=== PATIENT | male | born 1960 | race Two or more races ===

== ENCOUNTER 2023-11-21 20:47 | Inpatient (IN) | payer MEDICARE, OTHER ==
[~2023-11-21] VITALS: Ht 165.1 cm; Wt 82.5 kg
[2023-11-21 21:05] VITALS: PULSE 74; RESP 14; O2SAT 98
[2023-11-21] MEDS: IOHEXOL 350 MG/ML 100ML IJ ONE (21:24)
[2023-11-21] MEDS: ASPirin 81 mg TAB PO ONE (21:37)
[2023-11-21] MEDS: NITROGLYCERIN 0.4MG/HR TOPICAL PATCH TD ONE (21:37)
[2023-11-21] MEDS: hydrALAZINE HCL 20 MG/ML VL IV ONE (21:38)
[2023-11-21] MEDS: MORPHINE SULFATE 4 MG/ML SYR/VIAL IV ONE ×2 (21:49→23:10)
[2023-11-21 22:14] LABS: Basophils # (auto) 0.1 10 ^3/uL (0-0.2); Basophils % (auto) 0.7 % (0.0-2.0); Eosinophils # (auto) 0.2 10 ^3/uL (0-0.8); Eosinophils % (auto) 2.1 % (0.0-7.0); Hematocrit 47.8 % (41.0-53.0); Hemoglobin 16.9 g/dL (13.5-17.5); Lymphocytes # (auto) 1.1 10 ^3/uL (0.4-5.4); Mean Corpuscular Hemoglobin 32.5 pg (28.0-32.0); Mean Corpuscular Hgb Conc. 35.4 g/dL (32.0-36.0); Mean Corpuscular Volume 91.9 fL (80.0-100.0); Monocytes # (auto) 0.7 10 ^3/uL (0-1.3); Monocytes % (auto) 8.6 % (0.0-12.0); Neutrophils # (auto) 5.7 10 ^3/uL (1.6-8.6); Neutrophils % (auto) 74.6 % (37.0-80.0); Nucleated Red Blood Cells % 0.1 %; Platelet Count (auto) 153 10^3/uL (140-450); Red Cell Distribution Width 13.4 % (11.8-14.3); White Blood Cell 7.6 10^3/uL (4.4-10.8)
[2023-11-21 22:15] LABS: Urine Bacteria None Seen /hpf (None Seen); Urine WBC None Seen /hpf (0 - 3)
[2023-11-21 22:31] LABS: INR 0.96 (0.9-1.15); Partial Thromboplastin Time 25.6 SEC (24.5-34.5); Prothrombin Time 10.2 sec (9.3-11.8)
[2023-11-21 22:32] LABS: Urine Blood Negative /uL (Negative); Urine Clarity Clear (Clear); Urine Color Colorless (Yellow); Urine Protein, UAD Negative (Negative); Urine Specific Gravity 1.016 (1.001-1.035); Urine Urobilinogen Normal (Negative)
[2023-11-21 22:35] LABS: Alanine Aminotransferase 54 U/L (7-40); Albumin 4.7 g/dL (3.2-4.8); Alkaline Phosphatase 89 U/L (46-116); Anion Gap 6 (5-15); Aspartate Aminotransferase 28 U/L (13-40); BUN/Creatinine Ratio 10.6 (10.0-20.0); Blood Urea Nitrogen 12 mg/dL (9-23); Calcium 9.5 mg/dL (8.7-10.4); Carbon Dioxide 23 mmol/L (20-31); Chloride 105 mmol/L (98-107); Glucose 123 mg/dL (74-106); Potassium 3.5 mmol/L (3.5-5.1); Sodium 134 mmol/L (136-145)
[2023-11-21 22:36] LABS: Bilirubin, Total 0.6 mg/dL (0.2-1.0); Total Protein 7.3 g/dL (5.7-8.2)
[2023-11-21] MEDS: HEPARIN SODIUM (PORCINE) 5000 UNITS/ML 1ML VIAL IV ONE ×2 (23:27)
[2023-11-22] VITALS (14 sets, daily range): BP systolic 116–161; BP diastolic 57–85; PULSE 55–72; RESP 15–22; TEMP 98.1–98.7; O2SAT 94–98
[2023-11-22] MEDS ORDERED: NITROGLYCERIN 0.4 MG SL TAB SL PRN
[2023-11-22] MEDS: hydrALAZINE HCL 20 MG/ML VL IV SCH
[2023-11-22] MEDS ORDERED: ONDANSETRON HCL 4 MG/2 ML VIAL IV PRN
[2023-11-22] MEDS ORDERED: MORPHINE SULFATE INJ 2 MG/ml SYRG IV PRN
[2023-11-22 00:20] LABS: Triglycerides 553 mg/dL (< 150)
[2023-11-22 00:22] LABS: Cholesterol 245 mg/dL (< 200); HDL Cholesterol 40 mg/dL (40-59)
[2023-11-22] MEDS: HEPARIN DRIP/D5W 100UNITS/ML 250 ML IV SCH ×2 (00:24→09:30)
[2023-11-22 04:29] LABS: Basophils # (auto) 0.1 10 ^3/uL (0-0.2); Basophils % (auto) 0.6 % (0.0-2.0); Eosinophils # (auto) 0.1 10 ^3/uL (0-0.8); Hematocrit 44.2 % (41.0-53.0); Hemoglobin 15.8 g/dL (13.5-17.5); Lymphocytes # (auto) 1.1 10 ^3/uL (0.4-5.4); Lymphocytes % (auto) 12.7 % (10.0-50.0); Mean Corpuscular Hemoglobin 33.1 pg (28.0-32.0); Mean Corpuscular Hgb Conc. 35.8 g/dL (32.0-36.0); Mean Corpuscular Volume 92.4 fL (80.0-100.0); Monocytes # (auto) 0.7 10 ^3/uL (0-1.3); Neutrophils # (auto) 6.6 10 ^3/uL (1.6-8.6); Neutrophils % (auto) 77.7 % (37.0-80.0); Platelet Count (auto) 169 10^3/uL (140-450); Red Blood Cells 4.78 10^6/uL (4.5-5.90); Red Cell Distribution Width 13.1 % (11.8-14.3); White Blood Cell 8.4 10^3/uL (4.4-10.8)
[2023-11-22 04:44] LABS: Partial Thromboplastin Time 26.8 SEC (24.5-34.5); Prothrombin Time 10.6 sec (9.3-11.8)
[2023-11-22 04:46] LABS: Alanine Aminotransferase 52 U/L (7-40); Alkaline Phosphatase 68 U/L (46-116); Anion Gap 6 (5-15); Aspartate Aminotransferase 85 U/L (13-40); BUN/Creatinine Ratio 12.7 (10.0-20.0); Blood Urea Nitrogen 13 mg/dL (9-23); Calcium 9.4 mg/dL (8.7-10.4); Carbon Dioxide 23 mmol/L (20-31); Chloride 106 mmol/L (98-107); Glucose 152 mg/dL (74-106); Potassium 3.5 mmol/L (3.5-5.1); Sodium 135 mmol/L (136-145)
[2023-11-22 04:47] LABS: Bilirubin, Total 0.8 mg/dL (0.2-1.0); Total Protein 6.8 g/dL (5.7-8.2)
[2023-11-22 05:21] LABS: Albumin 4.4 g/dL (3.2-4.8)
[2023-11-22 09:21] LABS: INR 0.98 (0.9-1.15); Partial Thromboplastin Time 27.1 SEC (24.5-34.5); Prothrombin Time 10.4 sec (9.3-11.8)
[2023-11-22] MEDS: ASPirin 81 mg TAB PO SCH (10:53)
[2023-11-22] MEDS: LISINOPRIL 5 MG TAB PO SCH (10:56)
[2023-11-22 12:30] LABS: Amphetamine Screen, Urine Neg (NEGATIVE); Barbiturate Scree,Urine Neg (NEGATIVE); Benzodiazephine Screen, Urine Neg (NEGATIVE); Cocaine Screen, Urine Neg (NEGATIVE)
[2023-11-22] MEDS ORDERED: hydrALAZINE HCL 20 MG/ML VL IV PRN (12:30)
[2023-11-22 12:31] LABS: Cannabinoid Screen, Urine Neg (NEGATIVE); Opiate Scree,Urine Pos (NEGATIVE); Phencyclidine Screen, Urine Neg (NEGATIVE)
[2023-11-22] MEDS: HEPARIN IN NS 1000Units/500mL 1,500 ML ONE (13:12)
[2023-11-22] MEDS: IODIXANOL 320MG/ML 100ML BTL IV ONE (13:12)
[2023-11-22] MEDS: VERAPAMIL 2.5MG/ML INJ 2ML VIAL IV ONE (13:28)
[2023-11-22] MEDS: HEPARIN SODIUM (PORCINE) 5000 UNITS/ML 1ML VIAL ONE (13:28)
[2023-11-22] MEDS: LIDOCAINE 2%HCL (LOCAL ANESTH.) INJ 20ML MDV ONE (13:28)
[2023-11-22] MEDS: fentaNYL CITRATE 100 MCG/2 ML VL ONE (13:28)
[2023-11-22] MEDS: MIDAZOLAM HCL 2MG/2ML 2ml VIAL (1mg/ml) ONE (13:28)
[2023-11-22] MEDS: SODIUM CHL 0.9% 50 ML ONE (13:57)
[2023-11-22] MEDS: ANGIOMAX 250 MG VIAL IV ONE (13:57)
[2023-11-22] MEDS: CLOPIDOGREL BISULFATE 75 MG TAB ONE ×2 (14:41)
[2023-11-22 19:58] LABS: Partial Thromboplastin Time 20.8 SEC (24.5-34.5); Prothrombin Time 10.6 sec (9.3-11.8)
[2023-11-22] MEDS: ATORVASTATIN 20 MG TAB PO SCH (21:13)
[2023-11-22] MEDS ORDERED: ATORVASTATIN 20 MG TAB PO SCH (22:00)
[2023-11-22] MEDS: CALCIUM CARB 500 MG CHEW TAB PO ONE (23:56)
[2023-11-23] VITALS (7 sets, daily range): BP systolic 116–123; BP diastolic 57–69; PULSE 65–81; RESP 18–20; TEMP 37.1; O2SAT 94–97
[2023-11-23 06:54] LABS: Alanine Aminotransferase 52 U/L (7-40); Albumin 4.2 g/dL (3.2-4.8); Alkaline Phosphatase 66 U/L (46-116); Anion Gap 9 (5-15); Aspartate Aminotransferase 121 U/L (13-40); BUN/Creatinine Ratio 9.8 (10.0-20.0); Blood Urea Nitrogen 10 mg/dL (9-23); Calcium 9.5 mg/dL (8.7-10.4); Carbon Dioxide 23 mmol/L (20-31); Chloride 105 mmol/L (98-107); Glucose 122 mg/dL (74-106); Potassium 3.7 mmol/L (3.5-5.1); Sodium 137 mmol/L (136-145)
[2023-11-23 06:55] LABS: Bilirubin, Total 1.4 mg/dL (0.2-1.0); Total Protein 6.5 g/dL (5.7-8.2)
[2023-11-23 07:55] LABS: Basophils # (auto) 0 10 ^3/uL (0-0.2); Basophils % (auto) 0.3 % (0.0-2.0); Eosinophils # (auto) 0 10 ^3/uL (0-0.8); Eosinophils % (auto) 0.2 % (0.0-7.0); Hematocrit 42.6 % (41.0-53.0); Hemoglobin 15.2 g/dL (13.5-17.5); Lymphocytes # (auto) 1.1 10 ^3/uL (0.4-5.4); Lymphocytes % (auto) 12.9 % (10.0-50.0); Mean Corpuscular Hemoglobin 33.3 pg (28.0-32.0); Mean Corpuscular Hgb Conc. 35.8 g/dL (32.0-36.0); Mean Corpuscular Volume 93.2 fL (80.0-100.0); Monocytes # (auto) 0.8 10 ^3/uL (0-1.3); Monocytes % (auto) 9.2 % (0.0-12.0); Neutrophils # (auto) 6.9 10 ^3/uL (1.6-8.6); Neutrophils % (auto) 77.4 % (37.0-80.0); Nucleated Red Blood Cells % 0.1 %; Platelet Count (auto) 154 10^3/uL (140-450); Red Blood Cells 4.57 10^6/uL (4.5-5.90); Red Cell Distribution Width 13.5 % (11.8-14.3); White Blood Cell 8.9 10^3/uL (4.4-10.8)
[2023-11-23] MEDS: ASPirin 81 mg TAB PO SCH (09:54)
[2023-11-23] MEDS: CLOPIDOGREL BISULFATE 75 MG TAB PO SCH (09:55)
[2023-11-23] MEDS: METOPROLOL SUCCINATE XL 50 MG TAB PO SCH (09:56)
[2023-11-23] MEDS: EZETIMIBE 10 MG TAB PO SCH (09:58)
[2023-11-23] MEDS ORDERED: METO25TA36 PO (11:06)
[2023-11-23] MEDS ORDERED: CLOP75TA70 PO (11:06)
[2023-11-23] MEDS ORDERED: LISI-275 PO (11:06)
[2023-11-23] MEDS ORDERED: ASPI-325 PO (11:06)
[2023-11-23] MEDS ORDERED: ATOR-507 PO (11:06)
[2023-11-23] MEDS ORDERED: ATORVASTATIN 20 MG TAB PO SCH (22:00)
== END 2023-11-23 13:50 | disposition home or self-care (01) | DRG 322 ==
LOC: ER 20:47 → EDBD 20:47 → TELE 23:56 → TELE-E-ADS 11-22 17:29
PROVIDERS: ADMIT Nurse Practitioner; ATTEND Internal Medicine
PROC: 027034Z Dilation of Coronary Artery, One Artery with Drug-eluting Intraluminal Device, Percutaneous Approach (ICD-10-PCS; principal; 2023-11-22)
PROC: B211YZZ Fluoroscopy of Multiple Coronary Arteries using Other Contrast (ICD-10-PCS; 2023-11-22)
PROC: 4A023N7 Measurement of Cardiac Sampling and Pressure, Left Heart, Percutaneous Approach (ICD-10-PCS; 2023-11-22)
PROC: 3E03317 Introduction of Other Thrombolytic into Peripheral Vein, Percutaneous Approach (ICD-10-PCS; 2023-11-22)
PROC: B215YZZ Fluoroscopy of Left Heart using Other Contrast (ICD-10-PCS; 2023-11-22)
DX: I21.4 Non-ST elevation (NSTEMI) myocardial infarction (principal); I16.1 Hypertensive emergency; I50.32 Chronic diastolic (congestive) heart failure; I25.10 Atherosclerotic heart disease of native coronary artery without angina pectoris; E66.9 Obesity, unspecified; E78.00 Pure hypercholesterolemia, unspecified; M54.9 Dorsalgia, unspecified; E78.1 Pure hyperglyceridemia; R74.01 Elevation of levels of liver transaminase levels; Z79.02 Long term (current) use of antithrombotics/antiplatelets; Z79.82 Long term (current) use of aspirin; Z79.899 Other long term (current) drug therapy; I11.0 Hypertensive heart disease with heart failure; Z68.29 Body mass index [BMI] 29.0-29.9, adult
CPT/HCPCS: 36415; 71045; 75635; 80053; 80061; 80307; 81001; 83036; 83735; 83880; 84443; 84484; 85025; 85610; 85730; 92941; 93005; 93306; 93458; 99152; C1874; G0378; J2250; Q9967